=== PATIENT | female | born 1955 | race American Indian/Alaskan Native ===

== ENCOUNTER 2021-08-22 16:30 | Outpatient (CLI) | payer MEDICARE ==
--- NOTE | 2021-08-22 16:53 | XRAY Report ---
PROCEDURE: Chest 2 View X-Ray INDICATIONS: SHORTNESS OF BREATH TECHNIQUE: 2 view(s) of the chest. COMPARISON: None. FINDINGS: SUPPORT DEVICES: None. LUNGS/PLEURA: Coarsened and prominent interstitial markings. Biapical pleural thickening/scarring. No focal consolidation, pleural effusion or space-occupying pneumothorax. MEDIASTINUM: Enlargement of cardiac silhouette. BONES/SOFT TISSUES: No acute abnormality. IMPRESSION: 1.Prominent interstitial markings, likely reflecting interstitial lung disease. Pulmonary edema canno t be excluded. Reviewed by: Ricky Frank MD on 08/22/2021 4:51 PM [facility] Approved by: Ricky Frank MD on 08/22/2021 4:51 PM [facility] Station ID: [id number]
== END 2021-08-22 23:59 | disposition home or self-care (01) ==
LOC: DI.S 16:30
PROVIDERS: ATTEND Physician Assistant
DX: R06.02 Shortness of breath (principal); I50.9 Heart failure, unspecified; R91.8 Other nonspecific abnormal finding of lung field

== ENCOUNTER 2021-08-23 19:14 | Outpatient (CLI) | payer MEDICARE | END 2021-08-23 19:15 | disposition EMS.NT | LOC: EMS 19:14 | DX: R06.03 Acute respiratory distress (principal) ==